=== PATIENT | female | born 1945 | race Hispanic/Latino ===

== ENCOUNTER 2018-10-22 14:21 | Emergency (ER) | payer OTHER ==
--- OUTSIDE RECORDS SUMMARY | 2018-10-22 14:23 | XMS REPORT | Clinical Summary ---
:1945 Author Organization [facility] Address [address] [place] [address] Care Team Providers Name Role Phone Andrea Primary Care Provider Allergies Active Allergy Reactions Severity Noted Date Comments Penicillins 06/19/2016 Unknown Medications Medication Sig Dispensed Refills Start Date End Date Status amLODIPine (NORVASC) 5 MG Take 5 mg by 0 11/21/2015 Active tablet mouth daily . carvedilol (COREG) 12.5 Take 12.5 mg by 0 Active MG tablet mouth 2 (two) times daily with breakfast and dinner . ferrous sulfate 325 (65 Take 325 mg by 0 Active FE) MG tablet mouth. hydroxychloroquine Take 200 mg by 0 05/13/2016 Active (PLAQUENIL) 200 mg tablet mouth 2 (two) times daily . leflunomide (ARAVA) 20 MG Take 20 mg by 0 05/13/2016 Active tablet mouth daily . lisinopril Take 40 mg by 0 Active (PRINIVIL,ZESTRIL) 40 MG mouth daily . tablet pediatric multivitamin Take by mouth. 0 Active chewable tablet nitroglycerin 0.4 % (w/w) 30 g. 0 10/01/2014 Active Oint omeprazole 20 mg TbEC Take 20 mg by 0 Active mouth daily . traMADol (ULTRAM) 50 mg Take 50 mg by 0 02/10/2016 Active tablet mouth every 6 (six) hours as needed for Pain . trolamine salicylate Apply 0 Active (ASPERCREME) 10 % cream topically.. predniSONE (DELTASONE) 5 Take 5 mg by 0 Active MG tablet mouth daily. aspirin 81 MG EC tablet Take 81 mg by 0 Active mouth daily. Active Problems Problem Noted Date Syncope, unspecified syncope type 06/19/2016 Non-intractable vomiting with nausea 06/19/2016 RA (rheumatoid arthritis) Hypertension Venous ulcer of left leg Social History Tobacco Use Types Packs/Day Years Used Date Never Smoker Smokeless Tobacco: Never Used Alcohol Use Drinks/Week oz/Week Comments No Sex Assigned at Date Recorded Not on file Job Start Date Occupation Industry Not on file Not on file Not on file Travel History Travel Start Travel End No recent travel history available. Last Filed Vital Signs Not on file Plan of Treatment Not on file Results Not on fileafter 10/21/2017 Insurance Payer Benefit Plan / Subscriber ID Type Phone Address Group AETNA - MEDICARE AETNA MEDICARE HMO xxxxxxxx [phone] [address] [place] [address] Advance Directives For more information, please contact:[address] [phone] Code Status Date Activated Date Inactivated Comments Full Code 06/19/2016 5:57 PM 06/21/2016 9:11 PM This code status was determined by: Patient
--- OUTSIDE RECORDS SUMMARY | 2018-10-22 14:23 | XMS REPORT ---
:1945 [facility] Address [address] [place] [address] Dr. Moreno [address] [place] [id number] Care Team Providers Name Role Phone Unavailable Unavailable Unavailable Problems This patient has no known problems. Allergies, Adverse Reactions, Alerts This patient has no known allergies or adverse reactions. Medications This patient has no known medications.
[2018-10-22] MEDS ORDERED: FENTANYL CITR 100 MCG/2 ML ONE ×2 (16:10→17:24)
[2018-10-22 16:22] LABS: Absolute Lymphocytes (CBC) 0.3 K/uL (0.7-4.9); Absolute Neutrophil 7.5 K/uL (1.8-8.0); Basophils % 0.6 % (0-1.3); Eosinophils % 0.2 % (0-4.4); Hematocrit 32.5 % (36.0-45.0); Lymphocytes % 3.4 % (15.3-44.8); MPV 7.2 fL (7.6-11.3); Monocytes % 10.8 % (3.3-12.3); RBC Red Blood Cell Count 3.53 M/uL (3.86-4.86)
--- NOTE | 2018-10-22 16:26 | RAD REPORT ---
EXAM DESCRIPTION: RAD - Wrist Left 3 View - 10/22/2018 4:17 pm CLINICAL HISTORY: Left wrist pain FINDINGS: No fracture is seen. The bones are osteoporotic. Erosions involve the wrist with joint space narrowing and subchondral cys ts having the appearance of rheumatoid arthritis. The first distal phalanx is dislocated laterally
[2018-10-22 16:44] LABS: BUN Blood Urea Nitrogen 14 mg/dL (7-18); Bicarbonate 25 mmol/L (21-32); Glucose Level 101 mg/dL (74-106); Potassium 3.9 mmol/L (3.5-5.1); Sodium Level 137 mmol/L (136-145); Uric Acid 2.6 mg/dL (2.6-6.0)
--- NOTE | 2018-10-22 16:58 | ER ---
Nurse's Notes [facility] Name: Johana Betts Age: 72 yrs Sex: Female : 1945 Arrival Date: 10/22/2018 Time: 14:22 Bed 30 Private MD: Diagnosis: Rheumatoid arthritis to left wrist/hand;Pain in left wrist Presentation: 10/22 14:32 Presenting complaint: Patient states: Left hand swelling and pain, denies any injury or sg trauma to the area, reports history of RA but does not believe this to be related to the RA, denies any N/V/D/Fever at home. Transition of care: patient was not received from another setting of care. Onset of symptoms was October 22, 2018. Risk Assessment: Do you want to hurt yourself or someone else? Patient reports no desire to harm self or others. Initial Sepsis Screen: Does the patient meet any 2 criteria? No. Patient's initial sepsis screen is negative. Does the patient have a suspected source of infection? No. Patient's initial sepsis screen is negative. Care prior to arrival: None. 14:32 Method Of Arrival: Ambulatory sg 14:32 Acuity: ROBLES 3 sg Historical: - Allergies: 14:34 PENICILLINS; sg - Home Meds: 14:34 carvedilol oral oral [Active]; Lisinopril Oral [Active]; sg - PMHx: 14:34 Pacemaker; Hypertension; sg - PSHx: 14:34 Cardiac Cath; sg - Immunization history:: Adult Immunizations up to date. - Social history:: Smoking status: Patient/guardian denies using tobacco. - Ebola Screening: : Patient negative for fever greater than or equal to 101.5 degrees Fahrenheit, and additional compatible Ebola Virus Disease symptoms Patient denies exposure to infectious person Patient denies travel to an Ebola-affected area in the 21 days before illness onset No symptoms or risks identified at this time. Screenin:10 Abuse screen: Denies threats or abuse. Denies injuries from another. Nutritional rv screening: No deficits noted. Tuberculosis screening: No symptoms or risk factors identified. Fall Risk No fall in past 12 months (0 pts). Secondary diagnosis (15 points) impaired mobility, No IV (0 pts). Ambulatory Aid- Crutches/Cane/Walker (15 pts). Gait- Weak (10 pts.). Mental Status- Oriented to own ability (0 pts). Total Murillo Fall Scale indicates Low Risk Score (25-44 pts). Fall prevention measures have been instituted. Side Rails Up X 2 Placed close to Nursing Station Frequent Obs/Assesments occuring Family Present and informed to notify staff if they need to leave bedside As available Patient and Family Educated on Fall Prevention Program and strategies. Assessment: 15:08 General: Appears in no apparent distress. comfortable, Behavior is calm, cooperative. rv Pain: Complains of pain in left hand Pain radiates to left forearm. Neuro: Level of Consciousness is awake, alert, obeys commands, Oriented to person, place, time, situation. Cardiovascular: Capillary refill < 3 seconds. Respiratory: Airway is patent. GI: No signs and/or symptoms were reported involving the gastrointestinal system. : No signs and/or symptoms were reported regarding the genitourinary system. EENT: No signs and/or symptoms were reported regarding the EENT system. Derm: Skin temperature is warm. Musculoskeletal: Swelling present in left hand. 16:21 Reassessment: Patient appears in no apparent distress at this time. Patient and/or rv family updated on plan of care and expected duration. Pain level reassessed. Patient is alert, oriented x 3, equal unlabored respirations, skin warm/dry/pink. PAIN HAS DECREASED. Vital Signs: 14:35 BP 155 / 71; Pulse 99; Resp 17; Pulse Ox 97% on R/A; Pain 10/10; sg 15:02 BP 135 / 65; Pulse 90 RA; Resp 19 S; Pulse Ox 97% on R/A; rv 15:30 BP 128 / 70; Pulse 98 LA; Resp 15 S; Pulse Ox 94% on R/A; rv 16:01 BP 153 / 74 LA; Pulse 101; Resp 18 S; Pulse Ox 96% on R/A; rv 16:30 BP 149 / 76; Pulse 103; Resp 16 S; Pulse Ox 96% on R/A; rv 17:00 BP 130 / 59; Pulse 99; Resp 18 S; Pulse Ox 97% on R/A; rv ED Course: 14:22 Patient arrived in ED. as 14:33 Triage completed. sg 14:33 Arm band placed on. sg 15:06 Tari Stahl FNP-C is PHCP. snw 15:06 Nitesh Ingram MD is Attending Physician. snw 15:10 Patient has correct armband on for positive identification. Bed in low position. Call rv light in reach. Side rails up X 1. Adult w/ patient. Pulse ox on. NIBP on. 15:45 Inserted saline lock: 18 gauge in right antecubital area, using aseptic technique. rv Blood collected. 16:13 Wrist Left (3 View) XRAY In Process Unspecified. EDMS 17:07 No provider procedures requiring assistance completed. IV discontinued, bleeding rv controlled, No redness/swelling at site. Pressure dressing applied. Administered Medications: 15:20 Drug: Cipro 500 mg Route: PO; rv 17:27 Follow up: Response: Medication administered at discharge. rv 15:20 Drug: fentaNYL (PF) 50 mcg Route: IM; Site: right deltoid; rv 17:28 Follow up: Response: Medication administered at discharge. rv 16:02 Drug: fentaNYL (PF) 25 mcg Route: IVP; Site: right antecubital; rv 16:18 Follow up: Response: Pain is decreased rv 17:05 Drug: predniSONE 20 mg Route: PO; rv 17:05 Follow up: Response: Medication administered at discharge. rv Outcome: 16:57 Discharge ordered by MD. snw 17:07 Discharged to home ambulatory. rv 17:07 Condition: good 17:07 Discharge instructions given to patient, family, Instructed on discharge instructions, follow up and referral plans. medication usage, Demonstrated understanding of instructions, follow-up care, medications, Prescriptions given X 2. 17:29 Patient left the ED. rv Signatures: Dispatcher [employer] EDND Victor Hugo Howard, RN RN Tari Underwood, UTILITY WORKER FORGE-C UTILITY WORKER FORGE-Gabrielle Hager Ronaldo, RN RN rv Corrections: (The following items were deleted from the chart) 15:11 15:10 Fall Risk None identified. rv rv
--- NOTE | 2018-10-22 16:58 | EDPHYS ---
Physician Documentation [facility] Name: Johana Betts Age: 72 yrs Sex: Female : 1945 Arrival Date: 10/22/2018 Time: 14:22 Bed 30 Private MD: ED Physician Nitesh Ingram HPI: 10/22 17:19 This 72 yrs old Female presents to ER via Ambulatory with complaints of Hand snw Swelling. 17:19 The patient or guardian reports decreased range of motion, pain, swelling. The snw complaints affect the left hand and wrist. Context: resulted from a chronic condition, rheumatoid. Onset: The symptoms/episode began/occurred gradually, 4 day(s) ago, and became persistent. Associated signs and symptoms: The patient has no apparent associated signs or symptoms. Severity of symptoms: At their worst the symptoms were moderate, severe. The patient has experienced similar episodes in the past. It is unknown whether or not the patient has recently seen a physician. Historical: - Allergies: 14:34 PENICILLINS; sg - Home Meds: 14:34 carvedilol oral oral [Active]; Lisinopril Oral [Active]; sg - PMHx: 14:34 Pacemaker; Hypertension; sg - PSHx: 14:34 Cardiac Cath; sg - Immunization history:: Adult Immunizations up to date. - Social history:: Smoking status: Patient/guardian denies using tobacco. - Ebola Screening: : Patient negative for fever greater than or equal to 101.5 degrees Fahrenheit, and additional compatible Ebola Virus Disease symptoms Patient denies exposure to infectious person Patient denies travel to an Ebola-affected area in the 21 days before illness onset No symptoms or risks identified at this time. ROS: 16:27 Constitutional: Negative for fever, chills, and weight loss, Eyes: Negative for injury, snw pain, redness, and discharge, ENT: Negative for injury, pain, and discharge, Neck: Negative for injury, pain, and swelling, Cardiovascular: Negative for chest pain, palpitations, and edema, Respiratory: Negative for shortness of breath, cough, wheezing, and pleuritic chest pain, Abdomen/GI: Negative for abdominal pain, nausea, vomiting, diarrhea, and constipation, Back: Negative for injury and pain, : Negative for injury, bleeding, discharge, and swelling, Skin: Negative for injury, rash, and discoloration, Neuro: Negative for headache, weakness, numbness, tingling, and seizure. 16:27 MS/extremity: Positive for decreased range of motion, pain, swelling, of the left wrist/hand. Exam: 16:25 Constitutional: This is a well developed, well nourished patient who is awake, alert, snw and in no acute distress. Head/Face: Normocephalic, atraumatic. Eyes: Pupils equal round and reactive to light, extra-ocular motions intact. Lids and lashes normal. Conjunctiva and sclera are non-icteric and not injected. Cornea within normal limits. Periorbital areas with no swelling, redness, or edema. ENT: Nares patent. No nasal discharge, no septal abnormalities noted. Tympanic membranes are normal and external auditory canals are clear. Oropharynx with no redness, swelling, or masses, exudates, or evidence of obstruction, uvula midline. Mucous membranes moist. Neck: Trachea midline, no thyromegaly or masses palpated, and no cervical lymphadenopathy. Supple, full range of motion without nuchal rigidity, or vertebral point tenderness. No Meningismus. Chest/axilla: Normal chest wall appearance and motion. Nontender with no deformity. No lesions are appreciated. Cardiovascular: Irregular rate and rhythm with a normal S1 and S2. No gallops, murmurs, or rubs. Normal PMI, no JVD. No pulse deficits. Respiratory: Lungs have equal breath sounds bilaterally, clear to auscultation and percussion. No rales, rhonchi or wheezes noted. No increased work of breathing, no retractions or nasal flaring. Abdomen/GI: Soft, non-tender, with normal bowel sounds. No distension or tympany. No guarding or rebound. No evidence of tenderness throughout. Back: No spinal tenderness. No costovertebral tenderness. Full range of motion. Neuro: Awake and alert, GCS 15, oriented to person, place, time, and situation. Cranial nerves II-XII grossly intact. Motor strength 5/5 in all extremities. Sensory grossly intact. Cerebellar exam normal. Normal gait. Psych: Awake, alert, with orientation to person, place and time. Behavior, mood, and affect are within normal limits. 16:25 Musculoskeletal/extremity: Extremities: no acute changes, except to left wrist with impressive edema, mild increased warmth, mild erythema, + rheumatoid changes to bilateral hands, ROM: limited active range of motion, limited passive range of motion, Circulation is intact in all extremities. Compartment Syndrome exam of affected extremity: is normal. 16:25 Skin: Appearance: normal except for affected area, cellulitis, that is mild, patchy, on the left wrist with edema, warmth, mild erythema. Vital Signs: 14:35 BP 155 / 71; Pulse 99; Resp 17; Pulse Ox 97% on R/A; Pain 10/10; sg 15:02 BP 135 / 65; Pulse 90 RA; Resp 19 S; Pulse Ox 97% on R/A; rv 15:30 BP 128 / 70; Pulse 98 LA; Resp 15 S; Pulse Ox 94% on R/A; rv 16:01 BP 153 / 74 LA; Pulse 101; Resp 18 S; Pulse Ox 96% on R/A; rv 16:30 BP 149 / 76; Pulse 103; Resp 16 S; Pulse Ox 96% on R/A; rv 17:00 BP 130 / 59; Pulse 99; Resp 18 S; Pulse Ox 97% on R/A; rv MDM: 15:07 Patient medically screened. snw 17:03 Data reviewed: vital signs, nurses notes. Data interpreted: Pulse oximetry: on room air snw is 96 %. Interpretation: acceptable. Counseling: I had a detailed discussion with the patient and/or guardian regarding: the historical points, exam findings, and any diagnostic results supporting the discharge/admit diagnosis, lab results, radiology results, the need for outpatient follow up, to return to the emergency department if symptoms worsen or persist or if there are any questions or concerns that arise at home. Special discussion: I have referred the patient to see his PCP for further evaluation of high blood pressure. Based on the history and exam findings, there is no indication for further emergent testing or inpatient evaluation. I discussed with the patient/guardian the need to see the orthopedic surgeon for further evaluation of the symptoms. I discussed with the patient/guardian the need to see the primary care provider for further evaluation of the symptoms. 10/22 15:43 Order name: CBC with Diff; Complete Time: 17:02 snw 10/22 15:43 Order name: Blood Culture Adult (2) snw 10/22 15:43 Order name: Chem 7; Complete Time: 16:44 snw 10/22 15:43 Order name: Uric Acid; Complete Time: 16:44 snw 10/22 15:43 Order name: ESR; Complete Time: 17:02 snw 10/22 15:43 Order name: Procalcitonin; Complete Time: 16:52 snw 10/22 15:43 Order name: Wrist Left (3 View) XRAY; Complete Time: 16:28 snw 10/22 15:43 Order name: Lactate; Complete Time: 16:51 snw 10/22 15:44 Order name: Saline Lock; Complete Time: 16:03 snw 10/22 17:02 Order name: Wrist Splint; Complete Time: 17:27 snw Administered Medications: 15:20 Drug: Cipro 500 mg Route: PO; rv 17:27 Follow up: Response: Medication administered at discharge. rv 15:20 Drug: fentaNYL (PF) 50 mcg Route: IM; Site: right deltoid; rv 17:28 Follow up: Response: Medication administered at discharge. rv 16:02 Drug: fentaNYL (PF) 25 mcg Route: IVP; Site: right antecubital; rv 16:18 Follow up: Response: Pain is decreased rv 17:05 Drug: predniSONE 20 mg Route: PO; rv 17:05 Follow up: Response: Medication administered at discharge. rv Disposition: 19:09 Co-signature as Attending Physician, Nitesh Ingram MD. rn Disposition: 10/22/18 16:57 Discharged to Home. Impression: Rheumatoid arthritis to left wrist/hand, Pain in left wrist. - Condition is Stable. - Discharge Instructions: Joint Pain, Cast or Splint Care, Adult, Musculoskeletal Pain, RICE for Routine Care of Injuries, Wrist Pain, Wrist Splint, Cryotherapy, [id number]. - Prescriptions for Prednisone 20 mg Oral Tablet - take 1 tablet by ORAL route every 12 hours for 5 days; 10 tablet. Cipro 500 mg Oral Tablet - take 1 tablet by ORAL route every 12 hours for 7 days; 14 tablet. Tramadol 50 mg Oral Tablet - take 1 tablet by ORAL route every 8 hours as needed; 12 tablet. - Medication Reconciliation Form, Thank You Letter, Antibiotic Education, Prescription Opioid Use form. - Follow up: Private Physician; When: 2 - 3 days; Reason: Recheck today's complaints, Continuance of care, Re-evaluation by your physician. Follow up: Emergency Department; When: As needed; Reason: Worsening of condition. Signatures: Dispatcher [employer] EDVictor Hugo Orellana RN RN Trai Underwood, ICT TEACHER-C ICT TEACHER-Csnw Nitesh Ingram MD MD rn Vicente, Ronaldo, RN RN rv Corrections: (The following items were deleted from the chart) 17:29 16:57 10/22/2018 16:57 Discharged to Home. Impression: Rheumatoid arthritis to left rv wrist/hand; Pain in left wrist. Condition is Stable. Forms are Medication Reconciliation Form, Thank You Letter, Antibiotic Education, Prescription Opioid Use. Follow up: Private Physician; When: 2 - 3 days; Reason: Recheck today's complaints, Continuance of care, Re-evaluation by your physician. Follow up: Emergency Department; When: As needed; Reason: Worsening of condition. snw
[2018-10-22] MEDS ORDERED: predniSONE 20 MG TAB ONE (17:15)
[2018-10-22] MEDS ORDERED: CIPROFLOXACIN HCL 500 MG TAB ONE (17:25)
[2018-10-22 18:04] VITALS: BP 130/59; O2SAT 97
== END 2018-10-22 17:29 | disposition home or self-care (01) ==
LOC: ER 14:21
DX: M06.9 Rheumatoid arthritis, unspecified (principal); I10 Essential (primary) hypertension; Z88.0 Allergy status to penicillin
CPT/HCPCS: 36415; 73110; 80048; 83605; 84145; 84550; 85025; 85652; 87040 ×2; 96372; 96374; 99284; J3010 ×2; J7512

== ENCOUNTER 2019-05-09 07:07 | Day surgery (SDC) | payer OTHER ==
[2019-05-08 13:43] LABS: Absolute Lymphocytes (CBC) 0.6 K/uL (0.7-4.9); Basophils % 2.2 % (0-1.3); Hematocrit 29.2 % (36.0-45.0); Lymphocytes % 12.3 % (15.3-44.8); MPV 7.2 fL (7.6-11.3); RBC Red Blood Cell Count 3.11 M/uL (3.86-4.86)
[2019-05-08 13:57] LABS: Potassium 3.8 mmol/L (3.5-5.1)
--- NOTE | 2019-05-08 14:49 | RAD REPORT ---
EXAM DESCRIPTION: RAD - Chest Single View - 05/08/2019 2:24 pm CLINICAL HISTORY: Preop chest examination, pending decubitus ulcer debridement COMPARISON: Chest exam June 2015 TECHNIQUE: AP portable chest image was obtained 1420 hours . FINDINGS: Lung volumes are low. No peripheral mass or consolidation. Interstitial pattern is accentu ated by the shallow inspiration. Mild edema or infiltrate could be masked in this setting. Heart size is magnified by shallow inspiration. No significant interval change. Pacemaker is in place. Sternoto my wires in place. No measurable pleural effusion and no pneumothorax. No acute bony abnormality seen . No acute aortic findings suspected. IMPRESSION: Shallow inspiration exam showing prominent interstitial pattern likely shallow inspirati on artifact. Interstitial edema or infiltrate could be masked in this setting.
--- NOTE | 2019-05-08 18:30 | EKG ---
Test Date: 2019-05-08 Test Time: 13:45:05 Magnetic Tape Typewriter Operator: VITA MEASUREMENT RESULTS: Intervals: Rate: 90 WA: 140 QRSD: 180 QT: 446 QTc: 545 [place]: P: 53 WA: 140 QRS: 130 T: 93 INTERPRETIVE STATEMENTS: Electronic ventricular pacemaker Compared to ECG 04/23/2015 14:10:42 Atrial-sensed ventricular-paced complex(es) or rhythm no longer present Electronically Signed On 05-08-19 18:29:20 CDT by Josias Ortega
--- OUTSIDE RECORDS SUMMARY | 2019-05-09 07:10 | XMS REPORT | Clinical Summary ---
:1945 Author Organization [facility] Address [address] [place] [address] Care Team Providers Name Role Phone Andrea [...] Not on file Results Not on fileafter 05/08/2018 Insurance Payer Benefit Plan / Subscriber ID Type Phone Address Group [employer] - MEDICARE AETNA MEDICARE HMO xxxxxxxx [phone] [address] [place] [address] Advance Directives For more information, please contact:[address] [phone] Code Status Date Activated Date Inactivated Comments Full Code 06/19/2016 5:57 PM 06/21/2016 9:11 PM This code status was determined by: Patient
--- OUTSIDE RECORDS SUMMARY | 2019-05-09 07:11 | XMS REPORT ---
:1945 [facility] Address [address] [place] [place] [address] Care Team Providers Name Role Phone Unavailable Unavailable Unavailable Problems This patient has no known problems. Allergies, Adverse Reactions, Alerts This patient has no known allergies or adverse reactions. Medications This patient has no known medications. Encounters Start End Encounter Admission Attending Care Care Encounter Date/Time Date/Time Type Type Clinicians Facility Department ID 2018-12-04 Inpatient E [facility] [id number] 21:15:00 2019-04-27 2019-04-27 Outpatient [facility] [id number] 13:01:00 13:01:00 2019-04-25 2019-04-25 Outpatient [facility] [id number] 16:01:00 16:01:00 2019-03-16 2019-03-16 Outpatient E [facility] [id number] 00:55:00 00:55:00 2019-03-08 2019-03-08 Inpatient E [facility] [id number] 13:04:00 09:34:00
[2019-05-09] MEDS ORDERED: Ringers Lactate 1,000 ML IV ONE (08:14)
[2019-05-09] MEDS ORDERED: FENTANYL CITR 100 MCG/2 ML ONE (08:25)
[2019-05-09] MEDS ORDERED: PROPOFOL 200 MG/20 ML VIAL IV ONE (08:25)
[2019-05-09] MEDS ORDERED: LIDOCAINE 1% MPF 5 ML VIAL ONE (08:25)
[2019-05-09] MEDS ORDERED: KETOROLAC 30 MG/ML INJ ONE (08:57)
[2019-05-09] MEDS ORDERED: ONDANSETRON 4 MG/2 ML VIAL ONE (09:02)
[2019-05-09] MEDS ORDERED: Phenylephrine HCl 10 MG/ML 1 ML VIAL ONE (09:02)
[2019-05-09] MEDS ORDERED: NS 0.9% VIAL 10 ML ONE (09:03)
--- NOTE | 2019-05-09 09:27 | P.BOP ---
Preoperative diagnosis: infected sacral decubitus ulcer Postoperative diagnosis: infected sacral decubitus ulcer Primary procedure: Excisional debridement infected sacral decubitus ulcer 4x3x1.5 cm stage 4 Estimated blood loss: <5cc Specimen: necrotic tissue Findings: infected sacral decubitus ulcer Anesthesia: General Complications: None Drain(s): Other Transferred to: Recovery Room Condition: Good
[2019-05-09 11:14] VITALS: BP 111/54; TEMP 98.2; O2SAT 98
--- NOTE | 2019-05-09 23:19 | DS ---
Date of Discharge: 05/09/2019 Diagnosis: Infected sacral decubitus ulcer. Procedure: Excisional debridement of infected sacral decubitus ulcer stage IV down to fascia, muscle and bone. Disposition: Home. Activity: As tolerated. No heavy lifting. Followup: Follow up in my office in 1 week. Call for appointment at [phone]. Patient was advised to come to the wound healing center since she comes there all the time. Medications: See orders. PEDRO/EH Voice ID: [id number] Report ID: [id number]
--- NOTE | 2019-05-09 23:26 | OP ---
Date of Procedure: 05/09/2019 Surgeon: Solomon Tabares MD Preoperative Diagnosis: Infected sacral decubitus ulcer. Postoperative Diagnosis: Infected sacral decubitus ulcer. Procedure: Excisional debridement of infected sacral decubitus ulcer, subcu, deep about 4 x 3 x 1.5 cm, stage IV. Specimens: Necrotic tissue. Anesthesia: General plus local. Once again, this excisional debridement is down to muscle and fascia. Anesthesia: General plus local. Indications: This is a case of a 73-year-old patient with 2 problems, left leg ulcer and also sacral ulcer, this is going deeper. Patient was seen in the wound healing center and needs surgical debrid ement. The benefits, alternatives and risks were explained, which include, but are not limited to in fection, bleeding, damage to adjacent structures, anesthesia complications, nonhealing wound, VT, and even . She also understands this might not relieve any symptoms. She might need more than one surgical intervention. She understands the importance of offloading, and signed a consent. Description Of Procedure: The patient was brought to the operating room, placed in supine position. Anesthesia was done without complication. Sacral area was prepped and draped in a sterile fashion. The area of the wound delineated. An incision was made over the area. Incision was carried down to the deep subcutaneous tissue and we noticed this goes all the way down to bone and the fascia of the muscle. The area was irrigated. The devitalized tissue was removed. Hemostasis obtained and then the area was packed with wet-to-dry dressing. Patient tolerated the procedure well. Patient was sent to Recovery in stable condition. When this infection goes away, then most likely she will requi re a wound VAC. PEDRO/EH Voice ID: [id number] Report ID: [id number]
== END 2019-05-09 10:45 | disposition home or self-care (01) ==
LOC: OR 07:07
PROVIDERS: ATTEND Surgery
PROC: 0JB70ZZ Excision of Back Subcutaneous Tissue and Fascia, Open Approach (ICD-10-PCS; principal; 2019-05-09 09:00)
DX: L89.154 Pressure ulcer of sacral region, stage 4 (principal); I10 Essential (primary) hypertension; Z95.0 Presence of cardiac pacemaker; Z88.0 Allergy status to penicillin
CPT/HCPCS: 36415; 71045; 80048; 85025; 88304; 93005; J2370; J2405; J2704; J3010